=== PATIENT | female | born 1990 | race Caucasian/White ===

== ENCOUNTER 2019-11-11 16:14 | Outpatient (CLI) | payer OTHER ==
[~2019-11-11] VITALS: Ht 162 cm; Wt 99.2 kg
--- NOTE | 2019-11-11 16:19 | NUR ---
GELY SAINZ presented to unit via ambulation from ED, with c/o CONTRACTIONS. GELY SAINZ weighed, gowned, voided, and to bed. EFHM and TOCO applied, VS taken. GELY SAINZ oriented to bed controls, call light, TV, heat, and A/C controls.
--- NOTE | 2019-11-11 16:52 | NUR ---
Dr Ely called and notified of pt arrival to unit c/ complaint of ctx x2hrs. notified of pt history, EDC 12/02 (36.6weeks) ctx pattern, SVE, FHR, urine dipstick, VS and other assessment findings. Orders rec'd for oral hydration and discharge pt to home.
[2019-11-11 17:00] VITALS: BP 119/63
--- NOTE | 2019-11-11 17:28 | NUR ---
Discharge instructions explained to pt with copy provided to pt. Pt verbalizes understanding of instructions and signs to verify. Denies questions or concerns at this time. Pt ambulates off unit to private vehicle with all personal belongings. No s/s of distress noted.
--- NOTE | 2019-11-12 08:39 | Physician Query-Final Dx ---
YOVANI WEST 11/12/19 0839: Clinic Account Progress/Dx Physician Query: Please give diagnosis Please include # weeks gestation Date of Service Nov 11, 2019 at 16:14 INOCENTE GUIDRY DO 11/12/19 1408: Clinic Account Progress/Dx DIAGNOSIS: Diagnosis 37 week IUP Uterine cramping YOVANI WEST Nov 12, 2019 08:39 INOCENTE GUIDRY DO Nov 12, 2019 14:08
== END 2019-11-11 17:28 | disposition home or self-care (01) ==
LOC: WSo 16:14 → LDRP 16:14 → WSo 17:28
PROVIDERS: ATTEND Obstetrics & Gynecology
DX: O26.893 Other specified pregnancy related conditions, third trimester (principal); Z3A.37 37 weeks gestation of pregnancy
CPT/HCPCS: 99213

== ENCOUNTER → 2019-11-23 | Outpatient (CLI) | payer OTHER ==
--- NOTE | 2019-11-23 14:30 | Diagnostic Imaging Report ---
INDICATION: Size and date discrepancy. TECHNIQUE: Multiple real-time grayscale images were obtained over the gravid uterus. COMPARISON: None FINDINGS: There is a single live fetus in a cephalic presentation. heart rate was recorded at 152 bpm. Placenta is anterior. Amniotic fluid index is 10.9 cm. Biometrical measurements are as follows: Biparietal 8.64 cm, age 34 weeks 6 days. Head circumference 32.74 cm, age 37 weeks 2 days. Abdominal circumference 34.56 cm, age 38 weeks 4 days. Femur length 7.84 cm, age 40 weeks 1 days. Sonographic estimate age: 37 weeks 5 days. Sonographic estimated date of delivery: 12/09/2019. Estimated Weight: 3427 gm (+/- 500 gm). LMP percentile: 57%. heart rate: 152 beats per minute. number: 1 of 1. IMPRESSION: Single live IUP approximately 37 weeks 5 days gestational age. Estimated date of confinement sonographically is 12/09/2019. Dictated by: Dictated on workstation # [id number]
== END ==
LOC: RAD 10:49
PROVIDERS: ATTEND Obstetrics & Gynecology
DX: O26.843 Uterine size-date discrepancy, third trimester (principal); O09.293 Supervision of pregnancy with other poor reproductive or obstetric history, third trimester; Z3A.37 37 weeks gestation of pregnancy
CPT/HCPCS: 76805

== ENCOUNTER 2019-12-01 06:00 | Inpatient (IN) | payer OTHER ==
[2019-12-01] VITALS (83 sets, daily range): BP systolic 90–143; BP diastolic 48–84
[~2019-12-01] VITALS: Ht 162.6 cm; Wt 103.1 kg
--- OUTSIDE RECORDS SUMMARY | 2019-12-01 06:06 | XMS REPORT | Continuity of Care Document ---
Author Organization Unknown Address Unknown Phone Unavailable Allergies Active Description Code Type Severity Reaction Onset Reported/Identified Relationship to Patient Clinical Status Yes Penicillins [id number] Drug Aller gy Unknown Hives 11/11/2019 Medications There is no data. Problems Date Dx Coded Attending Type Code Diagnosis Diagnosed By 11/11/2019 FENECH DO, INOCENTE S Ot O26.893 OT RELATED CONDITIONS, THIRD 11/11/2019 FENECH DO, INOCENTE S Ot Z3A.37 37 WEEKS GESTATION OF 11/17/2019 FENECH DO, INOCENTE S Ot O26.893 OT RELATED CONDITIONS, THIRD 11/17/2019 FENECH DO, INOCENTE S Ot Z3A.37 37 WEEKS GESTATION OF 11/19/2019 FENECH DO, INOCENTE S Ot O26.893 OT RELATED CONDITIONS, THIRD 11/19/2019 FENECH DO, INOCENTE S Ot Z3A.37 37 WEEKS GESTATION OF 11/24/2019 FENECH DO, INOCENTE S Ot O09.293 SUPRVSN OF PREG W POOR REPRODCTV OR OBST 11/24/2019 FENECH DO, INOCENTE S Ot O26.843 UTERINE SIZE-DATE DISCREPANCY, THIRD TRI 11/24/2019 FENECH DO, INOCENTE S Ot Z3A.37 37 WEEKS GESTATION OF 11/25/2019 FENECH DO, INOCENTE S Ot O09.293 SUPRVSN OF PREG W POOR REPRODCTV OR OBST 11/25/2019 FENECH DO, INOCENTE S Ot O26.843 UTERINE SIZE-DATE DISCREPANCY, THIRD TRI 11/25/2019 FENECH DO, INOCENTE S Ot Z3A.37 37 WEEKS GESTATION OF Procedures There is no data. Results Test Result Range HCG, QUANTITATIVE - 04/05/19 15:21 HCG, TOTAL, QN 6801 mIU/mL NRG HCG, QUANTITATIVE - 04/07/19 08:28 [place] [address] mIU/mL NRG CULTURE, URINE - 04/12/19 15:57 CULTURE, URINE, ROUTINE SEE NOTE NRG GC/CHLAMYDIA (SWAB OR URINE)-RAPID - 15:57 CHLAMYDIA TRACHOMATIS RNA, TMA NOT DETECTED NOT DETECTED NEISSERIA GONORRHOEAE RNA, TMA NOT DETECTED NOT DETECTED COMMENT NRG SYPHILIS (RPR W/ REFLEX CONFIRMATION) - 08/27/19 10:10 RPR (DX) W/REFL TITER AND CONFIRMATORY TESTING NON-REACTIVE NON-REACTIVE Encounters ACCT No. Visit Date/Time Discharge Status Pt. Type Provider Facility Loc./Unit Complaint [id number] 10/27/2019 12:40:00 10/27/2019 23:59:5 9 CLS Outpatient TANESHA GUDINO APRN [facility] [id number] 08/27/2019 10:00:00 Document Registration [id number] 04/12/2019 15:20:00 Document Registration [id number] 04/07/2019 08:20:00 Document Registration [id number] 04/05/2019 14:20:00 Document Registration [id number] 11/23/2019 10:49:00 020 23:59:59 CLS Outpatient INOCENTE GUIDRY DO [facility] RAD UTERINE SIZE-DATE DISCR EPANCY [id number] 11/11/2019 16:14:00 020 17:28:00 DIS Outpatient INOCENTE GUIDRY DO [facility] WSo CONTRACTIONS [id number] 12/01/2019 06:00:00 P EN Preadmit INOCENTE GUIDRY DO
--- NOTE | 2019-12-01 06:09 | NUR ---
GELY SAINZ presented to unit via ambulation from ED, accompanied by so, with c/o . GELY SAINZ weighed, gowned, voided, and to bed. EFHM and TOCO applied, VS taken. GELY SAINZ oriented to bed controls, call light, TV, heat, and A/C controls.
[2019-12-01] MEDS ORDERED: PREN1TAB79 PO (06:13)
[2019-12-01] MEDS ORDERED: LIDOCAINE/EPI 2% 1:200,00 (XYLOCAINE) 10 ML VIAL INJ ONE (06:15)
[2019-12-01 06:49] LABS: BASOPHILS % (AUTO) 0 % (0-10); EOSINOPHILS # (AUTO) 0.1 10^3/uL (0.0-0.3); EOSINOPHILS % (AUTO) 1 % (0-10); HEMATOCRIT 31 % (35-52); HEMOGLOBIN 10.6 G/DL (11.5-16.0); LYMPHOCYTES % (AUTO) 23 % (12-44); MEAN CORPUSCULAR HEMOGLOBIN 31 PG (25-34); MEAN CORPUSCULAR HGB CONC 34 G/DL (32-36); MEAN CORPUSCULAR VOLUME 91 FL (80-99); MEAN PLATELET VOLUME 9.8 FL (7.4-10.4); MONOCYTES # (AUTO) 0.7 X 10^3 (0.0-1.0); MONOCYTES % (AUTO) 8 % (0-12); NEUTROPHILS % (AUTO) 68 % (42-75); PLATELET COUNT 202 10^3/uL (130-400); RED CELL DISTRIBUTION WIDTH 14.3 % (10.0-14.5); WHITE BLOOD COUNT 8.8 10^3/uL (4.3-11.0)
[2019-12-01] MEDS: D5 LR IV SOLUTION 1,000 ML IV SCH ×2 (06:49→15:14)
[2019-12-01] MEDS ORDERED: OXYTOCIN PRE-MIX DRIP 500 ML IV ONE (07:12)
[2019-12-01] MEDS ORDERED: OXYTOCIN PRE-MIX DRIP 500 ML IV SCH (07:23)
[2019-12-01] MEDS ORDERED: fentaNYL 2 mcg/ml BUPIVA 0.125 100 ML ONE (07:54)
[2019-12-01] MEDS ORDERED: fentaNYL INJECTION 100 MCG/2 ML AMP ONE ×2 (08:12→19:38)
[2019-12-01] MEDS ORDERED: BUPIVACAINE 0.25% 30 ML (SENSORCAINE) VIAL ONE (08:12)
--- NOTE | 2019-12-01 08:12 | History & Physical-OB ---
OB - Chief Complaint & HPI Date/Time Date of Admission: Date of Admission: Dec 01, 2019 at 6:02 am Date seen by a Provider: Dec 01, 2019 Time Seen by a Provider: 07:35 Chief Complaint/History OB-Reason for Admission/Chief: Induction of Labor Hx : 3 Hx Para: 2 Expected Date of Delivery: Dec 03, 2019 Gestational Age in Weeks: 39 Gestational Age in Days: 5 Admission Nurse Assessment Rev: Yes History of Labs O pos Antibody neg RI RPR NR HBsAg NR HIV NR GC neg GBS neg Allergies and Home Medications Allergies Coded Allergies: Penicillins (Unverified Allergy, Unknown, Hives, 11/11/19) Home Medications Vit W-Ca,Fe,FA(<1 mg) 1 Each Tablet, 1 EACH PO DAILY, (Reported) Patient Home Medication List Home Medication List Reviewed: Yes OB - History Hx of Present Care: Yes Ultrasounds: Normal mid trimester US Obstetrical Complications: None Medical Complications: None Patient Past Medical History n/a Social History/Family History Recent Infectious Disease Expo: No Alcohol Use: Denies Use Recreational Drug Use: No OB - Admission Exam Physical Exam Vitals: Vital Signs HEENT: NCAT Heart: Rhythm Normal Lungs: Clear Abdomen: Gravid Extremities: Normal Reflexes: Normal Cervical Dilatation: 1cm Effacement: 75% Station: -1 Membranes: Intact Heart Rate: 130's Accelerations: Accelerations Present Decelerations: No Decelerations Short Term Variability: Present Care Home Variability: Average (6-25) Contractions on Admission: 6-10 Minutes Apart Intensity: Mild Mckeon Scoring Tool (Modified) Dilation (cm): 1-2cm (1) Effacement (%): 51-79% (2) Descent/Station: -1,0 (2) Cervix Consistency: Soft (2) Cervix Position: Middle/Mid-Position (1) Add 1 point for: Each previous vaginal delivery (1) Mckeon Score: 10 Labs Laboratory Tests Test 12/01/19 06:35 Range/Units White Blood Count 8.8 4.3-11.0 10^3/uL Red Blood Count 3.43 L 4.35-5.85 10^6/uL Hemoglobin 10.6 L 11.5-16.0 G/DL Hematocrit 31 L 35-52 % Mean Corpuscular Volume 91 80-99 FL Mean Corpuscular Hemoglobin 31 25-34 PG Mean Corpuscular Hemoglobin Concent 34 32-36 G/DL Red Cell Distribution Width 14.3 10.0-14.5 % Platelet Count 202 130-400 10^3/uL Mean Platelet Volume 9.8 7.4-10.4 FL Neutrophils (%) (Auto) 68 42-75 % Lymphocytes (%) (Auto) 23 12-44 % Monocytes (%) (Auto) 8 0-12 % Eosinophils (%) (Auto) 1 0-10 % Basophils (%) (Auto) 0 0-10 % Neutrophils # (Auto) 6.0 1.8-7.8 X 10^3 Lymphocytes # (Auto) 2.0 1.0-4.0 X 10^3 Monocytes # (Auto) 0.7 0.0-1.0 X 10^3 Eosinophils # (Auto) 0.1 0.0-0.3 10^3/uL Basophils # (Auto) 0.0 0.0-0.1 10^3/uL OB - Assessment/Plan/Diagnosis Assessment Assessment: induction of labor Admission Dx 29 yo @ 39.5 weeks TOLAC planned GBS neg Admission Status: Inpatient Order (span 2 midnights) Reason for Inpatient Admission: Induction of labor at term Plan Plan: Induction Induction Method: AROM Other Plan Epidural per protocol Pitocin and AROM Anticipate vaginal delivery INOCENTE GUIDRY DO Dec 01, 2019 8:12 am
--- NOTE | 2019-12-01 08:19 | NUR ---
Dr. GONZALEZ here for epidural placement. Procedure explained, consent reviewed and signed by anesthesia. Questions answered to patient's satisfaction. Time out taken to verify correct patient/procedure. 0822 Patient up to side of bed, assisted into sitting position. 0826 Betadine prep done x3 and sterile drape applied. (0828, 0839, 0851, 0909) Local done, see anesthesia record. 0913 Test dose given PER Alix TRUJILLO CRNA; see anesthesia record for drug and dosage. Epidural catheter secured in place. Epidural placement complete. 0917 Assisted back into bed, monitors adjusted. Epidural dosed, see anesthesia record. Epidural of Sufenta/Bupvicaine @12cc/hr stated per pump. Patient tolerated procedure well.
[2019-12-01] MEDS: EPIDURAL (fentaNYL 2 MCG/ML BUPIVA 0.125%)100 ML BAG EPI PRN ×2 (09:23→17:00)
[2019-12-01] MEDS ORDERED: LACTATED RINGERS 1,000 ML IV ONE ×2 (10:07)
[2019-12-01] MEDS ORDERED: NALOXONE 0.4 MG/ML 1 ML (NARCAN) VIAL IV PRN (10:15)
[2019-12-01] MEDS ORDERED: ONDANSETRON 4 MG/2 ML (SDV) Z0FRAN IV PRN (10:15)
--- NOTE | 2019-12-01 19:30 | NUR ---
1929:Dr. Ely at pt bedside. SVE shows pt has made no change and is still at 5cm. Pt. agrees to continue with at this time. 1933: Digital Retoucher called with update of . 1955: Consents signed and meds given at this time. Warm fluids hung per anesthesia request. 2000: OR nurse in room. Pt transferred to back of OR with OR crew.
[2019-12-01] MEDS ORDERED: ceFAZolin 2 GM IV Premixed 50 ML ONE (19:33)
[2019-12-01] MEDS ORDERED: METOCLOPRAMIDE INJ 10 MG/2 ML (REGLAN) ONE (19:33)
[2019-12-01] MEDS ORDERED: CITRIC ACID/SOB CIT (BICITRA) 30 ML UDC ONE (19:33)
[2019-12-01] MEDS ORDERED: FAMOTIDINE 20MG/2ML IV (PEPCID) ONE (19:36)
[2019-12-01] MEDS ORDERED: LIDOCAINE PF 2% 5 ML (XYLOCAINE) VIAL ONE (19:37)
--- NOTE | 2019-12-01 20:09 | Progress Note-Pre Operative ---
Pre-Operative Progress Note H&P Reviewed The H&P was reviewed, patient examined and no changes noted. Date Seen by Provider: Dec 01, 2019 Time Seen by Provider: 20:00 Date H&P Reviewed: Dec 01, 2019 Time H&P Reviewed: 20:00 Pre-Operative Diagnosis: Arrest of dilatation, Previous INOCENTE GUIDRY DO Dec 01, 2019 20:09
[2019-12-01] MEDS ORDERED: HYDR-83 PO (20:12)
[2019-12-01] MEDS ORDERED: IBUP-844 PO (20:12)
[2019-12-01] MEDS ORDERED: DCS100C PO (20:12)
--- NOTE | 2019-12-01 20:13 | Discharge Inst-Women's Service ---
Discharge Inst-Women's Serv Depart Medication/Instructions New, Converted or Re-Newed RX: RX on Chart Problems Reviewed?: Yes Consults/Follow Up Additional Follow Up: Yes Orders/Referrals Dr. Ely in 7-10 days and in 6weeks Activity Activity: Activity as Tolerated Driving Instructions: No Driving for 1 Week NO SMOKING: NO SMOKING Nothing Inside Vagina: No Douching, No [place], No Tampons Diet Discharge Diet: No Restrictions Symptoms to Report to : Bleeding Excessive, Pain Increased, Fever Over 101 Degrees F, Vaginal Bleeding Increase, Questions/Concerns For Any Problems or Questions: Contact Your Physician Skin/Wound Care Infection Signs and Symptoms: Increased Redness, Foul Odor of Wound, Increased Drainage, Skin Itchy or Has a Rash, Increased Swelling, Temperature Above 101 F Operative Area Clean and Dry: Keep Incision Clean/Dry Stitches/[place]/Dermabond: Dermabond, Care of Stitches Bathing Instructions: INOCENTE Ward DO Dec 01, 2019 20:13
[2019-12-01] MEDS ORDERED: ONDANSETRON 4 MG/2 ML (SDV) Z0FRAN IVP PRN ×2 (20:15→21:15)
[2019-12-01] MEDS ORDERED: TETANUS,DIPTH,PERTUSS P/F (BOOSTRIX) 0.5 ML VIAL IM SCH (20:15)
[2019-12-01] MEDS ORDERED: MEASLES,MUMPS,RUBELLA 1 EA INJ SC SCH (20:15)
[2019-12-01] MEDS ORDERED: LACTATED RINGERS 1,000 ML IV PRN (20:19)
[2019-12-01] MEDS ORDERED: ONDANSETRON 4 MG/2 ML (SDV) Z0FRAN ONE (20:25)
[2019-12-01] MEDS ORDERED: FAMOTIDINE 20MG/2ML IV (PEPCID) IV ONE (20:30)
[2019-12-01] MEDS ORDERED: METOCLOPRAMIDE INJ 10 MG/2 ML (REGLAN) IV ONE (20:30)
[2019-12-01] MEDS ORDERED: CITRIC ACID/SOB CIT (BICITRA) 30 ML UDC PO ONE (20:30)
[2019-12-01] MEDS ORDERED: MIDAZOLAM 2 MG/2 ML (VERSED) VIAL ONE (20:33)
[2019-12-01] MEDS ORDERED: fentaNYL INJECTION 100 MCG/2 ML AMP IVP ONE (21:15)
[2019-12-01] MEDS ORDERED: HYDROmorphone 2 MG/ML VIAL (DILAUDID) IV ONE (21:15)
[2019-12-01] MEDS: KETOROLAC 30 MG/ML VIAL IVP PRN (21:44)
[2019-12-01] MEDS: HYDROcodone/APAP 5 MG/325 MG (LORTAB) TAB PO PRN (21:45)
--- NOTE | 2019-12-01 23:00 | NUR ---
Pt. up to bathroom with nurse assist. Tolerated well. Voided 200ml or urine. Underwear put on and gown changed. Pt. back to bed.
--- NOTE | 2019-12-01 23:01 | OPERATIVE REPORT ---
DATE OF SERVICE: PREOPERATIVE DIAGNOSES: 1. A 29-year-old G4, P2 at 39 weeks and 5 days gestation. 2. Arrest of dilatation. 3. Previous section. POSTOPERATIVE DIAGNOSES: 1. A 29-year-old G4, P2 at 39 weeks and 5 days gestation. 2. Arrest of dilatation. 3. Previous section. PROCEDURE: Repeat low transverse section. SURGEON: Moses Guidry DO ANESTHESIA: Epidural, which was bolused. ESTIMATED BLOOD LOSS: 600 mL. URINE OUTPUT: 125 mL clear at the end of the procedure. FLUIDS: 1800 mL lactated Ringer's solution. FINDINGS: A live female weighing 7 pounds even Apgars of 9 and 9. Grossly normal appearing uterus, bilateral fallopian tubes and ovaries. SPECIMEN SENT: Placenta. INDICATIONS FOR PROCEDURE: This 29-year-old female was a patient that I admitted earlier today for induction of labor and trial of labor after . Artificial rupture of membranes and Pitocin augmentation was used as my induction method. We were able to achieve an adequate contraction pattern fairly regular and early in the day with a maximum dose of Pitocin reached of 8 milliunits per minute. She was cynthia every 2 to 3 minutes. She did receive an epidural per our policy protocol and progressed from 1 cm dilatation to a 5 to 6 cm dilatation. This stayed the same without change for greater than 3 hours despite an adequate contraction pattern. I discussed with the patient of her arrest in dilatation and the likelihood of an occiput posterior presentation or some other asynclitic presentation. I discussed with the patient risk of going on with the versus proceeding with . After all of her questions were answered, consent was obtained in the preoperative area, the patient was taken to the operating room. OPERATIVE REPORT IN DETAIL: Once in the operating room, epidural analgesia was bolused and found to be adequate, placed in supine position with lateral tilt, prepped and draped in normal sterile fashion. Anesthesia was tested and timeout was performed. I then make a Pfannenstiel skin incision with a knife and carried down layer of fascia using Bovie cautery. The fascial incision was extended laterally using Bovie cautery. The superior aspect of the fascial incision was then grasped with Migue clamps, tented up and dissected off the underlying rectus muscles. The inferior aspect of the fascial incision was then grasped with Migue clamps, tented up and dissected off the underlying rectus muscles. The rectus muscles were then dissected down the midline using [place] scissors, which exposed the peritoneum, which I entered bluntly and extended using blunt traction. Raul ring retractor was then placed within the peritoneal incision, which offers excellent lateral sidewall retraction. I then identified the lower uterine segment, which was found to be thinned out. I make a low transverse incision to the vesicouterine peritoneum and bluntly dissected off the lower uterine segment. I proceeded with myotomy until membranes were visualized, at which point extended the uterine incision laterally and superiorly using bandage scissors. The was found in vertex presentation, occiput posterior. With gentle fundal pressure, the infant's head was elevated up to the incision where it was delivered through the incision. The nares and oropharynx were bulb suctioned. Anterior and posterior shoulders were delivered. was then brought to the operative field where the cord was doubly clamped and cut, and infant handed off to waiting nurses in attendance. Cord blood was collected, 3-vessel cord with intact placenta was delivered spontaneously thereafter. IV Pitocin was initiated to facilitate uterine contraction. Uterine fundus confirmed by manual massage. Uterus was then exteriorized and cleared of endometrial clots and debris. I then proceeded with closing the uterine incision using 0 Vicryl suture in running locked fashion. Second layer of imbricating 0 Monocryl was placed. Excellent hemostasis was noted after doing this. I then placed the uterus back within the pelvis and copiously irrigated the pelvis using normal saline. There was no active bleeding noted from any of my dissection planes. I placed Interceed antiadhesive over my low transverse incision and proceeded with closing the peritoneum using 3-0 Vicryl suture in a running fashion. The rectus muscles were reapproximated using 3-0 Vicryl suture in an interrupted fashion. The fascia was reapproximated using 0 Vicryl suture in running fashion. The subcutaneous tissue was reapproximated using 3-0 plain an interrupted subcutaneous stitch and skin reapproximated using 4-0 Monocryl in a running subcuticular. Dermabond was applied to incision and sterile dressing with adhesive white tape. The patient tolerated the procedure well and was taken to recovery area in stable condition. Lap and sponge counts were correct at the end of the procedure. Instrument counts correct as well. Two grams of Ancef were given preoperatively for infection prophylaxis. Job ID: [id number] DocumentID: [id number] Dictated Date: 12/01/2019 22:02:45 Patient Access Coordinator Date: 12/01/2019 23:01:12 Dictated By: MOSES GUIDRY DO
--- NOTE | 2019-12-01 23:30 | NUR ---
Report given to Gisell Dodson RN
[2019-12-02] MEDS: KETOROLAC 30 MG/ML VIAL IVP PRN ×2 (04:17→10:20)
[2019-12-02 04:20] VITALS: BP 112/69
[2019-12-02 06:26] LABS: BASOPHILS % (AUTO) 0 % (0-10); EOSINOPHILS # (AUTO) 0.1 10^3/uL (0.0-0.3); EOSINOPHILS % (AUTO) 1 % (0-10); HEMATOCRIT 26 % (35-52); HEMOGLOBIN 8.7 G/DL (11.5-16.0); LYMPHOCYTES # (AUTO) 2.3 X 10^3 (1.0-4.0); LYMPHOCYTES % (AUTO) 18 % (12-44); MEAN CORPUSCULAR HEMOGLOBIN 31 PG (25-34); MEAN CORPUSCULAR HGB CONC 34 G/DL (32-36); MEAN CORPUSCULAR VOLUME 92 FL (80-99); MEAN PLATELET VOLUME 9.8 FL (7.4-10.4); MONOCYTES # (AUTO) 0.6 X 10^3 (0.0-1.0); MONOCYTES % (AUTO) 5 % (0-12); NEUTROPHILS # (AUTO) 9.7 X 10^3 (1.8-7.8); NEUTROPHILS % (AUTO) 77 % (42-75); PLATELET COUNT 173 10^3/uL (130-400); WHITE BLOOD COUNT 12.6 10^3/uL (4.3-11.0)
--- NOTE | 2019-12-02 07:21 | Anesthesia-Regional Post-Op ---
Regional Patient Condition Mental Status: Alert, Oriented x3 Post Op Complications Complications None Follow Up Care/Instructions Patient Instructions None needed. Anesthesia/Patient Condition Patient is doing well, no complaints, stable vital signs, no apparent adverse anesthesia problems. No complications reported per nursing. GIUSEPPE ABREU CRNA Dec 02, 2019 07:21
--- NOTE | 2019-12-02 07:50 | NUR ---
Dr Ely her to see pt. discussed POC with pt.
[2019-12-02 08:00] VITALS: BP 113/56
--- NOTE | 2019-12-02 08:09 | Postpartum Progress Note ---
Note Note Day # 1 Subjective: Patient is without complaints. Ambulating, voiding. Tolerating a regular diet without nausea or vomiting. Normal lochia. Pain is well controlled with oral pain medications. Objective: Physical Exam: General - Alert and oriented, no apparent distress Abdomen - Soft, appropriately tender to palpation, non-distended, fundus firm at umbilicus Extremities - no edema, negative Oz's bilaterally Incision- c/d/i Assessment: POD 1 RLTCS Acute blood loss anemia Plan: Routine care. Encourage breast feeding. Encourage ambulation. Ferrous sulfate supplementation. Plan for discharge tomorrow Vitals - Labs Vital Signs - I&O Vital Signs Date Time Temp Pulse Resp B/P (MAP) Pulse Ox O2 Delivery O2 Flow Rate FiO2 12/02/19 04:20 35.6 76 16 112/69 (83) 98 Room Air 12/01/19 23:30 36.3 95 16 121/66 (84) 96 Room Air 12/01/19 23:00 36.7 82 20 126/59 (81) 96 Room Air 12/01/19 22:57 99 Room Air 12/01/19 22:15 36.4 17 121/77 (92) 98 Room Air 12/01/19 22:00 Room Air 12/01/19 22:00 36.5 18 111/69 (83) 98 Room Air 12/01/19 21:45 Room Air 12/01/19 21:45 36.5 19 118/62 (80) 99 Room Air 12/01/19 21:32 Room Air 12/01/19 21:30 36.6 21 115/69 (84) 100 12/01/19 21:10 Room Air 12/01/19 21:10 36.7 16 115/73 (87) 98 Room Air 12/01/19 18:49 83 18 115/67 (83) 99 Room Air 12/01/19 18:33 85 18 109/63 (78) 99 Room Air 12/01/19 18:19 35.9 79 18 123/69 (87) 99 Room Air 12/01/19 18:05 79 18 122/70 (87) 99 Room Air 12/01/19 17:49 74 18 122/71 (88) 98 Room Air 12/01/19 17:34 77 18 119/72 (88) 99 Room Air 12/01/19 17:19 81 18 109/71 (84) 99 Room Air 12/01/19 17:04 80 18 101/65 (77) 99 Room Air 12/01/19 17:00 35.8 12/01/19 16:50 76 18 117/66 (83) 97 Room Air 12/01/19 16:35 35.7 83 18 120/71 (87) 98 Room Air 12/01/19 16:20 81 18 120/70 (87) 98 Room Air 12/01/19 16:03 83 18 117/71 (86) 97 Room Air 12/01/19 15:50 68 18 113/64 (80) 96 Room Air 12/01/19 15:35 78 18 112/66 (81) 97 Room Air 12/01/19 15:20 86 18 93/53 (66) 98 Room Air 12/01/19 15:14 35.8 12/01/19 15:04 86 18 109/57 (74) 97 Room Air 12/01/19 14:50 86 18 107/58 (74) 97 Room Air 12/01/19 14:34 76 18 102/52 (69) 97 Room Air 12/01/19 14:20 86 18 115/56 (75) 99 Room Air 12/01/19 14:10 36.1 12/01/19 14:04 83 18 103/55 (71) 98 Room Air 12/01/19 13:51 80 18 104/56 (72) 98 Room Air 12/01/19 13:34 107 18 129/58 (81) 99 Room Air 12/01/19 13:21 91 18 104/59 (74) 97 Room Air 12/01/19 13:05 80 18 96/54 (68) 97 Room Air 12/01/19 12:49 35.9 89 18 90/53 (65) 97 Room Air 12/01/19 12:34 84 18 98/52 (67) 98 Room Air 12/01/19 12:20 86 18 106/54 (71) 98 Room Air 12/01/19 12:05 84 18 116/59 (78) 98 Room Air 12/01/19 11:59 35.8 12/01/19 11:50 85 18 91/51 (64) 98 Room Air 12/01/19 11:37 35.8 12/01/19 11:33 88 18 119/62 (81) 97 Room Air 12/01/19 11:20 86 18 114/56 (75) 97 Room Air 12/01/19 11:05 89 18 119/57 (77) 97 Room Air 12/01/19 10:50 83 18 110/61 (77) 97 Room Air 12/01/19 10:32 35.9 12/01/19 10:29 96 18 115/57 (76) 98 Room Air 12/01/19 10:24 88 18 113/55 (74) 99 Room Air 12/01/19 10:20 93 18 108/64 (79) 98 Room Air 12/01/19 10:16 87 18 115/57 (76) 98 Room Air 12/01/19 10:09 79 18 114/58 (76) 97 Room Air 12/01/19 10:05 98 18 107/71 (83) Room Air 12/01/19 10:00 82 18 95/48 (64) 98 Room Air 12/01/19 09:52 87 18 96/52 (67) 98 Room Air 12/01/19 09:50 86 18 95/52 (66) Room Air 12/01/19 09:47 93 18 103/58 (73) 98 Room Air 12/01/19 09:44 95 18 104/61 (75) Room Air 12/01/19 09:41 89 18 103/58 (73) 98 Room Air 12/01/19 09:37 92 18 108/55 (72) 98 Room Air 12/01/19 09:35 86 18 120/59 (79) Room Air 12/01/19 09:32 94 18 121/60 (80) 98 Room Air 12/01/19 09:29 98 18 118/59 (78) Room Air 12/01/19 09:25 95 18 125/62 (83) 98 Room Air 12/01/19 09:22 91 20 116/57 (76) 97 Room Air 12/01/19 09:19 96 20 130/63 (85) 97 Room Air 12/01/19 09:16 98 20 111/56 (74) 98 Room Air 12/01/19 09:13 102 20 108/59 (75) Room Air 12/01/19 09:10 101 20 121/65 (83) 98 Room Air 12/01/19 09:07 94 20 114/69 (84) 98 Room Air 12/01/19 09:05 20 121/69 (86) Room Air 12/01/19 09:02 96 20 118/62 (80) Room Air 12/01/19 08:58 103 20 123/66 (85) 98 Room Air 12/01/19 08:55 110 20 143/78 (99) Room Air 12/01/19 08:52 111 20 138/84 (102) 98 Room Air 12/01/19 08:49 112 20 135/79 (97) Room Air 12/01/19 08:46 105 20 136/81 (99) 98 Room Air 12/01/19 08:43 107 20 138/80 (99) 98 Room Air 12/01/19 08:40 99 20 134/70 (91) Room Air 12/01/19 08:37 109 20 134/71 (92) 98 Room Air 12/01/19 08:34 101 20 135/69 (91) Room Air 12/01/19 08:31 93 20 139/73 (95) 98 Room Air 12/01/19 08:29 106 20 141/71 (94) 98 Room Air 12/01/19 08:25 97 18 123/66 (85) Room Air 12/01/19 08:23 101 18 125/70 (88) 98 Room Air 12/01/19 08:13 85 18 106/50 (68) Room Air I & O 12/02/19 07:00 Intake Total 2950 ml Output Total 1825 ml Balance 1125 ml Labs Laboratory Tests 12/02/19 06:10: White Blood Count 12.6H, Red Blood Count 2.80L, Hemoglobin 8.7L, Hematocrit 26L, Mean Corpuscular Volume 92, Mean Corpuscular Hemoglobin 31, Mean Corpuscular Hemoglobin Concent 34, Red Cell Distribution Width 14.0, Platelet Count 173, Mean Platelet Volume 9.8, Neutrophils (%) (Auto) 77H, Lymphocytes (%) (Auto) 18, Monocytes (%) (Auto) 5, Eosinophils (%) (Auto) 1, Basophils (%) (Auto) 0, Neutrophils # (Auto) 9.7H, Lymphocytes # (Auto) 2.3, Monocytes # (Auto) 0.6, Eosinophils # (Auto) 0.1, Basophils # (Auto) 0.0 INOCENTE GUIDRY DO Dec 02, 2019 08:09
[2019-12-02] MEDS: DOCUSATE SODIUM 100 MG (COLACE) CAP PO SCH ×2 (09:13→13:58)
[2019-12-02] MEDS: HYDROcodone/APAP 5 MG/325 MG (LORTAB) TAB PO PRN ×2 (09:14→15:27)
[2019-12-02 12:45] VITALS: BP 107/53
--- NOTE | 2019-12-02 13:27 | NUR ---
abdominal binder given and help pt apply. Pt verbalized understanding.
[2019-12-02] MEDS: CATHETER FLUSH 10 ML SYR IV SCH ×7 (13:53→14:05)
[2019-12-02] MEDS: OXYTOCIN PRE-MIX DRIP 500 ML IV SCH ×2 (14:01→14:03)
[2019-12-02] MEDS: IBUPROFEN 600 MG (MOTRIN) TAB PO SCH ×3 (14:03→18:49)
[2019-12-02 15:27] VITALS: BP 116/65
[2019-12-02 20:41] VITALS: BP 129/79
--- NOTE | 2019-12-02 20:42 | NUR ---
Nurse at pt bedside. Vitals taken and assessment done. Pt is complaining of gas pain in her shoulder and chest. Pt educated on ways to help with gas pain. No other questions at this time.
[2019-12-03] MEDS: IBUPROFEN 600 MG (MOTRIN) TAB PO SCH ×2 (00:11→06:11)
[2019-12-03 00:12] VITALS: BP 104/56
[2019-12-03] MEDS: DOCUSATE SODIUM 100 MG (COLACE) CAP PO SCH ×2 (00:13→10:17)
[2019-12-03 06:08] VITALS: BP 123/74
[2019-12-03] MEDS: HYDROcodone/APAP 5 MG/325 MG (LORTAB) TAB PO PRN (06:11)
--- NOTE | 2019-12-03 07:19 | Postpartum Progress Note ---
Note Note Day # 2 Subjective: Patient is without complaints. Ambulating, voiding. Tolerating a regular diet without nausea or vomiting. Normal lochia. Pain is well controlled with oral pain medications. Objective: Physical Exam: General - Alert and oriented, no apparent distress Abdomen - Soft, appropriately tender to palpation, non-distended, fundus firm at umbilicus Extremities - no edema, negative Oz's bilaterally Incision- c/d/i Assessment: POD 2 RLTCS Acute blood loss anemia Plan: Routine care. Encourage breast feeding. Encourage ambulation. Ferrous sulfate supplementation. Plan for discharge today Vitals - Labs Vital Signs - I&O Vital Signs Date Time Temp Pulse Resp B/P (MAP) Pulse Ox O2 Delivery O2 Flow Rate FiO2 12/03/19 06:08 36.2 78 18 123/74 (90) 98 Room Air 12/03/19 00:12 36.8 82 18 104/56 (72) 98 Room Air 12/02/19 20:41 36.5 89 18 129/79 (96) 99 Room Air 12/02/19 15:27 36.6 88 18 116/65 (82) 98 Room Air 12/02/19 12:45 36.6 84 18 107/53 (71) 98 Room Air 12/02/19 08:00 36.6 92 18 113/56 (75) 98 Room Air I & O 12/03/19 07:00 Intake Total 2000 ml Output Total 2000 ml Balance 0 ml INOCENTE GUIDRY DO Dec 03, 2019 07:19
--- NOTE | 2019-12-03 07:30 | NUR ---
Dr Ely here to see pt. Discharge orders rec'd.
--- NOTE | 2019-12-03 09:30 | NUR ---
Shower supplies provided. taken to nsy while pt showers. Will return for assessment after pt showers.
[2019-12-03 10:15] VITALS: BP 117/71
--- NOTE | 2019-12-03 10:55 | NUR ---
Discharge instructions explained to pt with copy provided to pt along with prescriptions provided. Pt notified of follow up appointments made. Pt verbalizes understanding of instructions and signs to verify. No questions or concern voiced at this time.
--- NOTE | 2019-12-03 14:15 | NUR ---
Pt taken off unit via wheelchair to private vehicle, accompanied by RN, carrying infant along with all personal belongings. No s/s of distress noted.
== END 2019-12-03 14:15 | disposition home or self-care (01) | DRG 787 ==
LOC: LDRP 06:02
PROVIDERS: ADMIT Obstetrics & Gynecology; ATTEND Obstetrics & Gynecology
PROC: 10907ZC Drainage of Amniotic Fluid, Therapeutic from Products of Conception, Via Natural or Artificial Opening (ICD-10-PCS; 2019-12-01)
PROC: 10D00Z1 Extraction of Products of Conception, Low, Open Approach (ICD-10-PCS; principal; 2019-12-01 20:09)
DX: O34.211 Maternal care for low transverse scar from previous cesarean delivery (principal); O62.0 Primary inadequate contractions; O90.81 Anemia of the puerperium; D62 Acute posthemorrhagic anemia; Z37.0 Single live birth; Z3A.39 39 weeks gestation of pregnancy
CPT/HCPCS: 36415; 85025; 86850; 86900; 86901; 94664